=== PATIENT | female | born 1995 | race Caucasian/White ===

== ENCOUNTER → 2020-05-19 10:58 | Outpatient (CLI) | payer OTHER, MEDICAID, SELFPAY ==
[2020-05-19 12:13] LABS: GTT (PREG) 1 Hour PP 50gm Dose 100 mg/dL (76-139)
[2020-05-21 20:36] LABS: AFP, Serum 43.6 ng/mL (.); Calc Gestational Age Ultrasound (.); Estriol, Free 0.99 ng/mL (.); Inhibin A, Dimeric 119.25 pg/mL (.); Inhibin A, MoM 0.91 (.); Maternal Ethnicity Caucasian (.); Maternal Weight 208 lbs (.); Number of Fetuses No (.); OSBR Risk 1 IN 2523 (.); Results Report (.); Test Results *Screen Negative* (.); hCG, MoM 0.86 (.); hCG, Serum 27983 mIU/mL (.)
== END ==
PROVIDERS: Referring Provider Nurse Practitioner Obstetrics & Gynecology; Visit Provider Nurse Practitioner Obstetrics & Gynecology
DX: Z34.90 Encounter for supervision of normal pregnancy, unspecified, unspecified trimester (principal); Z13.1 Encounter for screening for diabetes mellitus; Z36.1 Encounter for antenatal screening for raised alphafetoprotein level; Z3A.16 16 weeks gestation of pregnancy
CPT/HCPCS: 36415; 82105; 82677; 82950; 83036; 84702; 86336

== ENCOUNTER → 2020-06-20 10:39 | Outpatient (CLI) | payer OTHER, MEDICAID, SELFPAY ==
--- NOTE | 2020-06-20 | DI.US.S_ITS ---
PROCEDURE: US OB >= 14 WEEKS FETUS INDICATIONS: ANATOMY SCAN OUTSIDE/PRIOR DATING DATA: Last menstrual period (LMP): 01/02/2020. LMP-based estimated date of delivery (SARAI): 10/08/2020 . First dating scan (date and location): 06/20/2020 . Estimated date of delivery (SARAI) from first dating scan: 10/24/2020 . TECHNIQUE: Real-time scanning was performed of the fetus, with image documentation and biometric measurements. Endovaginal scanning: No COMPARISON: None. FINDINGS: General: A single living intrauterine gestation is present. Presentation: Vertex. Placenta: Placental position is posterior , without previa. Amniotic fluid index: 13.4 cm, normal range is 5-24 cm. heart rate: 141 beats per minute. Maternal cervical canal: 3.0 cm long. Normal lower limit is 2.5 cm. biometrics: Biparietal diameter: 22 weeks 4 days Head circumference: 22 weeks 2 days Abdominal circumference: 21 weeks 5 days Femur length: 21 weeks 3 days Estimated gestational age from initial scan: not applicable. Composite gestational age from present scan: 22 weeks Estimated weight and percentile: 443 g Measurement variability for biometric dating: +/- 7 days from 14 weeks to 15 weeks 6 days gestation, +/- 10 days from 16 weeks to 21 weeks 6 days gestation, +/- 2 weeks from 22 weeks to 27 weeks 6 days gestation, +/- 3 weeks for 28 weeks gestation or later. weight reference: 4500 g or EFW >90/95% is considered macrosomia or large for gestational age. EFW <10% is small for gestational age. EFW 5% or less is considered intra-uterine growth restriction. Anatomic survey: Neuro: Ventricles are non-dilated at less than 10 mm. Cisterna magna is normal at 3-11 mm. Cerebellum is normal in size and morphology. Nuchal skin fold: Normal at less than 6 mm between 14-21 weeks gestational age. Face: Nose and lips, facial profile are normal. Spine: No evidence for spina bifida. Heart: 4-chambered heart is present, with normal ventricular outflow tracts. Left ventricular intracardiac focus. Diaphragm: Diaphragm is intact. Stomach: Left-sided stomach is present. Kidneys: No hydronephrosis. Normal is less than 5 mm in 2nd trimester, less than 7 mm in 3rd trimester. Cord: 3-vessel cord has orthotopic insertion. Bladder: Normal in size. Extremities: All 4 extremities identified. IMPRESSION: 1. 22 week 0 day single living IUP corresponding to ultrasound SARAI of 10/24/2020. 2. Echogenic intracardiac focus: 1.4-1.8 fold likelihood of Down syndrome. If isolated finding, consider aneuploidy screening with cell-free DNA. If aneuploidy screen is negative, no further evaluation needed. Anatomic survey otherwise is normal. Dictated by: Frank Arzate [facility] Interpreted: Grant Bills MD on 06/20/2020 at 12:59 Approved by: Grant Bills M.D. on 06/20/2020 at 14:07
== END ==
PROVIDERS: Referring Provider Nurse Practitioner Obstetrics & Gynecology; Visit Provider Nurse Practitioner Obstetrics & Gynecology
DX: Z36.89 Encounter for other specified antenatal screening (principal); Z3A.22 22 weeks gestation of pregnancy
CPT/HCPCS: 76811

== ENCOUNTER → 2020-07-18 07:01 | Outpatient (CLI) | payer OTHER, MEDICAID, SELFPAY ==
[2020-07-18 08:07] LABS: Hematocrit 32.8 % (36-46); Mean Corpuscular HGB Conc 33.5 % (30-36); Mean Corpuscular Hemoglobin 30.7 PG (26-34); Mean Corpuscular Volume 91.8 fL (80-100); Platelet Count 273 X10^3/uL (150-400); Red Blood Cell Count 3.57 X10^6/uL (4.0-5.2); Red Cell Distribution Width 13.9 % (11.6-14.8); White Blood Cell Count 14.5 X10^3/uL (4.5-11.0)
[2020-07-18 08:16] LABS: Glucose Fasting 77 mg/dL (70-100)
[2020-07-18 09:25] LABS: Glucose Tol Interpretation INTERPRETATION
[2020-07-18 09:45] LABS: Glucose 1 Hour 125 mg/dL (70-170)
[2020-07-18 10:36] LABS: Glucose 2 Hour 100 mg/dL (70-140)
== END ==
PROVIDERS: PCP Nurse Practitioner Obstetrics & Gynecology; Referring Provider Nurse Practitioner Obstetrics & Gynecology; Visit Provider Nurse Practitioner Obstetrics & Gynecology
DX: Z34.90 Encounter for supervision of normal pregnancy, unspecified, unspecified trimester (principal); Z13.1 Encounter for screening for diabetes mellitus; Z3A.26 26 weeks gestation of pregnancy
CPT/HCPCS: 36415; 82951; 82952; 85027

== ENCOUNTER → 2020-10-10 11:44 | Outpatient (ROUT) | payer OTHER, MEDICAID, SELFPAY | PROVIDERS: PCP Nurse Practitioner Obstetrics & Gynecology; Visit Provider Nurse Practitioner Obstetrics & Gynecology | DX: Z34.90 Encounter for supervision of normal pregnancy, unspecified, unspecified trimester (principal); Z36.85 Encounter for antenatal screening for Streptococcus B; Z3A.36 36 weeks gestation of pregnancy | CPT/HCPCS: 87081; 87147 ==

== ENCOUNTER 2020-11-07 09:31 | Inpatient (IN) | payer OTHER, MEDICAID, SELFPAY ==
--- NOTE | 2020-11-07 09:48 | PM.OBHP.1 ---
OB HPI Date/Time Date of admission: 11/07/20 Date Patient Seen: 11/07/20 Time Patient Seen: 09:48 History of Present Condition Chief complaint: NST : 1 Para: 0 Estimated Date of Delivery: 11/03/20 Estimated Gestational Age (weeks): 40.4 Narrative: Angelica Bolton is a 25 year old female @ [id number] by early US who presents for evaluation of labor. Has been experiencing contractions all morning that have slowly increased in frequency and intensity. +FM. No VB or LOF. Uncomplicated PN care w/ CNM. Desires low intervention . History of Present care: good care, initiated at week # (11), number of visits (9) and pounds weight gain (59) Dating criteria: based on 1st trimester US only Ultrasounds: normal mid trimester US Obstetrical complications: none Medical complications: none Preadmission Labs Blood type: O (+) positive -: Antibody screen: negative, GBS status: positive, HBsAG: negative and RPR/VDLR: negative -: Rubella: immune HCT: 32.8 HCAB: reactive Narrative: 2hr gtt: 77/125/100 Evaluation Evaluation Baseline heart rate: 125 Variability: Moderate (11-25) monitor accelerations: Present Monitor Decelerations: Absent Contraction Frequency (minutes): 3 Uterine Contraction Intensity: Moderate Category of Tracing: Reactive Status: Category l Cervical dilation (cm): 5 Cervical effacement (%): 75 station: -1 [facility] Medical History (Updated 11/07/20 @ 10:28 by Marci Heard CNM) Eating disorder Family History (Updated 11/07/20 @ 10:30 by Marci Heard CNM) Mother Hypothyroid Social History (Updated 11/07/20 @ 10:30 by Marci Heard CNM) marital status: household members: spouse lives independently: Yes caregiver/support person: No housing: house occupational status: employed Smoking Status: Never smoker Meds Home Medications and Allergies Home Medications Medication Instructions Recorded Confirmed Type omeprazole 20 mg capsule,delayed mg 11/07/20 History release Allergies Allergy/AdvReac Type Severity Reaction Status Date / Time No Known Drug Allergies Allergy Verified 11/07/20 09:53 Review of Systems Review of Systems ROS: Yes All systems reviewed with the patient and are negative except as otherwise documented Exam Vital Signs (past 8 hours): BP 126/66mmHg, HR 78bpm, T 97.8F Temporal, SpO2 97% on RA Presentation: vertex Objective Labs Result Diagrams: 11/07/20 11:10 Labs: SARS-CoV-2: negative Assessment and Plan Assessment and Plan Assessment and Plan narrative: A: Term nullipara Active labor GBS prophylaxis indicated Cat I FHR P: Admit, routine labor orders. May switch to IA. PCN for GBS prophylaxis. Labor support, PRN. Reassess in 4 hours or sooner, PRN.
[2020-11-07 11:21] LABS: Add Manual Diff / Slide Review NO; Basophils Absolute Auto 100 /uL (0-100); Basophils Percent Auto 0.5 % (0-2); Eosinophils Absolute Auto 200 /uL (0-450); Eosinophils Percent Auto 1.2 % (2-4); Hematocrit 30.2 % (36-46); Hemoglobin 10.5 g/dL (12.0-16.0); Lymphocytes Absolute Auto 1600 /uL (1100-4500); Lymphocytes Percent Auto 11.4 % (25-40); Mean Corpuscular Hemoglobin 30.8 PG (26-34); Mean Corpuscular Volume 88.1 fL (80-100); Monocytes Absolute Auto 1200 /uL (0-900); Monocytes Percent Auto 8.3 % (3-14); Neutrophils Absolute Auto 11300 /uL (1500-7000); Neutrophils Percent Auto 78.6 % (50-75); Platelet Count 243 X10^3/uL (150-400); Red Blood Cell Count 3.42 X10^6/uL (4.0-5.2); Red Cell Distribution Width 15.2 % (11.6-14.8); White Blood Cell Count 14.4 X10^3/uL (4.5-11.0)
[2020-11-07] MEDS: LACTATED RINGERS 1,000 ML 100 ML IV (11:23)
[2020-11-07] MEDS: PENICILLIN G POTASSIUM 5,000,000 UNIT in DEXTROSE 5% IN WATER 250 ML IV (11:24)
[2020-11-07 11:34] LABS: COVID19 - ADMIT (NP swab/PCR) Negative (Negative)
--- NOTE | 2020-11-07 14:10 | PM.OBPNLAB ---
Date/Time Date Patient Seen: 11/07/20 Time Patient Seen: 14:00 Pain Control Pain control: tolerating well Comments: Angelica is laboring in room, on hands and knees, with supportive partner and mother at side. Vocalizing through contractions. Coping well. BP: 124/72 mmHg, HR: 85 bpm, T: 36.1 C temporal Pelvic Exam Dilation (cm): 6 Effacement (%): 80 station: -1 Amniotic membrane status: Intact Contractions Contractions on admission: regular Monitor mode: Palpation Contraction frequency (min): 3 Contraction duration (min): 2 Contraction pattern: Regular Contraction intensity: Moderate Status status: Category l Heart Rate Baseline: 120 Monitor Accelerations: Present Monitor Decelerations: Absent Monitor Variability: Moderate Comments: Reassuring by intermittent auscultation. Continuous FHR tracing cat 1 from [id number] Assessment and Plan Assessment: active labor Plan: continuous present management
[2020-11-07 14:35] VITALS: BP 126/66
[2020-11-07] MEDS: PENICILLIN G POTASSIUM 3,000,000 UNIT/50 ML FROZ.PIGGY 100 UNIT IV ×2 (15:49→19:47)
--- NOTE | 2020-11-07 19:31 | P.PCN_ITS ---
Regional Block Pre-procedure Procedure: Continuous Lumbar Epidural for L&D Attending OB provider: Marci Heard PMH/ROS narrative: term labor, 7cm, no complications ASA Class: III (BMI 40) Labs: Hct 30.2 % (36-46) L 11/07/20 11:10 Plt Count 243 X10^3/uL (150-400) 11/07/20 11:10 Medications: Current Medications Generic Name Dose Route Start Last Admin Trade Name Freq PRN Reason Stop Dose Admin Calcium Carbonate 1,000 mg 11/07/20 09:47 Calcium Carbonate 500 Mg Tab PO Q2HR PRN Dyspepsia Carboprost Tromethamine 250 mcg 11/07/20 09:42 Carboprost 250 Mcg/Ml Ampul IM Q90M PRN Bleeding Diphenhydramine HCl 25 mg 11/07/20 18:48 Diphenhydramine 50 Mg/Ml Vial IV Q10M PRN Pruritis Lactated Ringer's 1,000 mls @ 100 mls/hr 11/07/20 09:45 11/07/20 11:23 Lactated Ringers IV 100 mls/hr CONT VARGHESE Administration Oxytocin/Lactated Ringer's 30 unit in 500 mls @ 200 mls/hr 11/07/20 09:42 Oxytocin Premix IV CONT PRN Bleeding Protocol Tranexamic Acid 1,000 mg/ 100 mls @ 200 mls/hr 11/07/20 09:42 Sodium Chloride IV NOW PRN Bleeding Penicillin G Potassium 3,000,000 unit in 50 mls @ 100 mls/hr 11/07/20 14:00 11/07/20 15:49 Penicillin G Potassium IV 100 mls/hr Q4H VARGHESE Administration FENT 2MCG/ML BUPIV 0.125% EPI 200 mcg in 100 mls @ 6 mls/hr 11/07/20 19:00 Fentanyl/Bupiv/Ns 2mcg/Ml - 0.125% EPIDURAL CONT VARGHESE Methylergonovine Maleate 0.2 mg 11/07/20 09:42 Methylergonovine 0.2 Mg Tablet PO Q6HR PRN Heavy Bleeding Methylergonovine Maleate 0.2 mg 11/07/20 09:42 Methylergonovine 0.2 Mg/Ml Vial IM NOW PRN Bleeding Misoprostol 800 mcg 11/07/20 09:42 Misoprostol 200 Mcg Tablet WA NOW PRN Bleeding Misoprostol 1,000 mcg 11/07/20 09:42 Misoprostol 200 Mcg Tablet WA NOW PRN Bleeding Misoprostol 400 mcg 11/07/20 09:42 Misoprostol 200 Mcg Tablet SL NOW PRN Bleeding Nalbuphine HCl 2.5 mg 11/07/20 18:48 Nalbuphine 20 Mg/Ml Ampul IV Q10M PRN Pruritis Ondansetron HCl 4 mg 11/07/20 09:47 Ondansetron 4 Mg/2 Ml Inj IV Q4HR PRN Nausea And Vomiting Oxytocin 10 unit 11/07/20 09:42 Oxytocin 10 Unit/Ml Vial IM NOW PRN Bleeding Allergies: Allergies Allergy/AdvReac Type Severity Reaction Status Date / Time No Known Drug Allergies Allergy Verified 11/07/20 09:53 Procedure Insertion date: 11/07/20 Insertion time: 19:00 Prep/Local: betadine x3 Interspace: L3-4 Patient position: sitting Needle: 18 gauge KTM Advance (CSE: 27g Pencan through Hustead, clear CSF, 1mL 0.25% bupiv) Loss of resistance with: saline RICH at (cm): 6 Catheter placed at SKIN (cm): 12 Catheter in SPACE (cm): 6 Insertion: No CSF, No Blood, No Paresthesia with insertion, No Paresthesia with injection and No Test dose reaction Initial Medications TEST DOSE time: 19:03 TEST DOSE: 1.5% lidocaine with epinephrine 1:200k (mL): 3 BOLUS DOSE time: 19:25 BOLUS DOSE (mL): 5 BOLUS DOSE med: 0.25% bupivacaine Infusion INFUSION: 0.125% bupivacaine and with fentanyl 2 mcg/mL Initial rate (mL/hr): 8 Subsequent interventions: 19:25 50mcg fentanyl with loading dose Post-procedure Anesthesia time START: 18:51 Anesthesia time END: 01:06 Post-procedure Anesthesia Assessment: Yes CV function: HR/BP stable, Yes Resp function: RR/sat/airway adequate, Yes Mental status appropriate and No Anesthesia complications
--- NOTE | 2020-11-07 19:38 | PM.OBPNLAB ---
Date/Time Date Patient Seen: 11/07/20 Time Patient Seen: 19:38 Pain Control Pain control: epidural Comments: Angelica labored well, coping well with contractions. Began feeling spontaneous urge to push at 1730 and began pushing with contractions. Was examined and found to still have cervix with buldgey bag of fluid. AROM at 1830 with attempt to decrease her early urge to push. Meconium stained fluid noted. Urge to push was not improved with rupture. Pt was counseled on options and decided to have an epidural for pain control. Epidural has been placed with good relief. BP: 120/58 mmHg, HR: 68 bpm, T: 36.6 c temporal Pelvic Exam Dilation (cm): 7 Effacement (%): 90 station: -1 Amniotic membrane status: Ruptured Contractions Monitor mode: External Contraction frequency (min): 3 Contraction duration (min): 1 Contraction pattern: Regular Contraction intensity: Moderate Status status: Category l Heart Rate Baseline: 115 Monitor Accelerations: Present Monitor Decelerations: Early Monitor Variability: Moderate Assessment and Plan Assessment: active labor Plan: continuous present management Comments: Encourage position change with peanut ball. Reassess in 2 hrs or sooner prn
--- NOTE | 2020-11-07 21:42 | PM.OBPNLAB ---
Date/Time Date Patient Seen: 11/07/20 Time Patient Seen: 21:43 Pain Control Comments: RN called for decrease in FHR baseline to 105. Angelica resting in bed with epidural, unaware of contractions. SVE unchanged. While counseling on recommendation for IUPC, prolonged deceleration noted on EFM, ortega of 55 bpm. FSE placed followed by IUPC. During IUCP placement cervix found to be 9/100/0. Pelvic Exam Dilation (cm): 9 Effacement (%): 100 station: 0 Amniotic membrane status: Ruptured Contractions Monitor mode: External Contraction frequency (min): 3 Contraction pattern: Regular Contraction intensity: Moderate Status status: Category ll Heart Rate Baseline: 105 Monitor Accelerations: Present Monitor Decelerations: Early and Variable Monitor Variability: Moderate Assessment and Plan Assessment: active labor Plan: continuous present management Comments: Encourage position changes. Will start pitocin if contractions inadequate by kimberley vigil.
[2020-11-08] MEDS: PENICILLIN G POTASSIUM 3,000,000 UNIT/50 ML FROZ.PIGGY 100 UNIT IV (00:22)
--- NOTE | 2020-11-08 01:24 | PM.OBPRVD ---
Events: Meconium Stained Fluid Labor & Delivery Delivery date: 11/08/20 Cervical ripening method: none Induction method: none Delivery monitor: internal FHT and internal uterine Route of delivery: L&D Laceration Description: None Estimated blood loss (mL): 150 Anesthesia Type: Epidural Narrative: Angelica reported increased rectal pressure. SVE 10/100/+1. Angelica began effectively pushing with coaching. bradycardia and variable decelerations noted on EFM. RT paged to standby for thin meconium and cat 2 FHR. Angelica delivered a baby boy at 0056 in [place] with a single, loose nuchal. Shoulders delivered easily. Thick terminal meconium noted. placed on maternal abdomen for drying and stimulation with poor tone and poor respiratory effort. Cord was clamped and cut and baby was brought to warmer for NRP. Apgars were 4 and 8. Pitocin was given via IV for active management of the third stage. Cord blood was collected. Placenta with previously undiagnosed velamentaous cord insertion was delivered spontaneously and intact with a 3 vessel cord. No lacerations were noted. Baby was placed skin to skin with mom after NRP. [place] Baby 1: gender: Male Presentation: vertex Position: Left Occiput Anterior Placenta delivery description: Spontaneous score (1 min): 4 score (5 min): 8 weight: 3965 kg Plan for aftercare: Routine care
[2020-11-08] MEDS: KETOROLAC 30 MG/ML VIAL IV (03:41)
[2020-11-08] MEDS: ACETAMINOPHEN 325 MG TABLET 650 MG PO (06:48)
[2020-11-08] MEDS: IBUPROFEN 600 MG TABLET PO (07:56)
[2020-11-08] MEDS: OXYCODONE IR 5 MG TABLET PO ×3 (08:46→21:15)
[2020-11-08] MEDS: DOCUSATE 100 MG CAPSULE PO (11:45)
--- NOTE | 2020-11-08 13:49 | PM.OBDS.1 ---
Discharge Providers Provider Date of admission: 11/07/20 09:31 Discharge Date: 11/08/20 Primary care physician: Marci Heard CNM Consults: 11/09/20 01:21 Consult to Supervisor [employer] Routine Comment: Discharge provider: Marci Herad CNM Summary Hospital Course Date Patient Seen: 11/08/20 Time Patient Seen: 11:45 Diagnoses: o80 Hospital Course: Angelica is voiding, ambulating and indpendently on PP day 1 s/p NSVB. Tolerating a general diet. Pain is well controlled w/ PO medication with oxycodone use for low back pain. Vaginal bleeding is moderate without clots. Has showered and is dressed in her own clohes, eager for discharge to home this evening/LUIGI. and mother are present and supportive. Peripartum Data Delivery Method: Natural Vaginal Laceration Description: None Episiotomy description: None complications: none [place] 1: Gender: Male Disposition of : home Discharge Diagnosis (1) Encounter for full-term uncomplicated delivery: Status: Acute Status at Discharge Cognitive/behavioral status at discharge: calm Functional status at discharge: independent ambulation Overall status at discharge: patient is progressing back to baseline Time Spent with Patient Time attestation: Total time spent providing and/or coordinating discharge services: Time spent: Less than 30 minutes Objective Labs Result Diagrams: 11/07/20 11:10 Exam Vital Signs (past 8 hours): BP 118/74bpm, HR 63bpm, RR 12/min, T 97F Temporal Other: Fundus form @ u, lochia light, no clots, perineum intact with mild edema Discharge Plan Discharge Plan Patient Disposition: Home Discharge orders & Medications Prescriptions: New oxycodone 5 mg Tablet 5 mg PO Q4HR PRN (Reason: Pain, Moderate (4-6)) 4 Days Qty: 10 RF: 0 ibuprofen 600 mg Tablet 600 mg PO Q6HR PRN (Reason: Pain, Mild (1-3)) 14 Days Qty: 60 RF: 0 docusate sodium 100 mg Capsule 100 mg PO DAILY 14 Days Qty: 14 RF: 0 Continued Vitamin 1 tab PO DAILY RF: 0 Discontinued omeprazole 20 mg capsule,delayed release(DR/EC) RF: 0 Follow up/Referrals: Marci Heard CNM [Primary Care Provider] - (Follow-up by Telehealth 11/20/2020 @ 1pm Follow-up in office 12/19/2020 @ 1pm ) Diet/Activity/Treatments Diet: Diet as Tolerated Activity: pelvic rest x 6 weeks Skin/Wound/Dressing Care Report to your healthcare provider any signs of infection, such as:: chills, fever, increased pain, unusual drainage and unusual redness Visit Report/Discharge Packet Instructions: Depression Discharge Data Primary Care Provider: Marci Heard
[2020-11-08 17:12] VITALS: BP 123/60; PULSE 66; RESP 10; TEMP 36.9
== END 2020-11-08 22:50 | disposition home or self-care (01) | DRG 560 ==
PROVIDERS: Admitting Provider Nurse Practitioner Obstetrics & Gynecology; PCP Nurse Practitioner Obstetrics & Gynecology; Referring Provider Nurse Practitioner Obstetrics & Gynecology; Visit Provider Nurse Practitioner Obstetrics & Gynecology
DX: O99.824 Streptococcus B carrier state complicating childbirth (principal); Z3A.40 40 weeks gestation of pregnancy; Z37.0 Single live birth; O77.0 Labor and delivery complicated by meconium in amniotic fluid; O69.81X0 Labor and delivery complicated by cord around neck, without compression, not applicable or unspecified; O76 Abnormality in fetal heart rate and rhythm complicating labor and delivery; Z20.822 Contact with and (suspected) exposure to COVID-19
CPT/HCPCS: 01967; 36415; 59050; 85025; 86850; 86900; 86901; 87635; 99406; C9803; G0379; J1885; J2540

== ENCOUNTER → 2021-12-25 11:02 | Outpatient (CLI) | payer OTHER, MEDICAID, SELFPAY | PROVIDERS: PCP Nurse Practitioner Obstetrics & Gynecology; Visit Provider Registered Nurse | DX: J02.9 Acute pharyngitis, unspecified (principal) | CPT/HCPCS: 87070; 87880 ==

== ENCOUNTER → 2022-02-15 07:30 | Outpatient (CLI) | payer OTHER, MEDICAID, SELFPAY ==
[2022-02-15 11:50] LABS: Influenza A - CEPHEID Flu A NEGATIVE (NEGATIVE); Influenza B - CEPHEID Flu B NEGATIVE (NEGATIVE); Respiratory Syncytial Virus Negative (Negative)
[2022-02-15 11:51] LABS: COVID-19 CEPHEID 4-PLEX PCR Negative (Negative)
== END ==
PROVIDERS: PCP Nurse Practitioner Obstetrics & Gynecology; Visit Provider Registered Nurse
DX: R05.1 Acute cough (principal); Z20.822 Contact with and (suspected) exposure to COVID-19
CPT/HCPCS: 0241U

== ENCOUNTER → 2023-11-29 07:49 | Outpatient (CLI) | payer OTHER, SELFPAY ==
[2023-11-29 10:19] LABS: Glucose Fasting 83 mg/dL (70-100)
[2023-11-29 10:22] LABS: Glucose 1 Hour 155 mg/dL (70-170)
[2023-11-29 10:25] LABS: Glucose Tol Interpretation INTERPRETATION
[2023-11-29 12:23] LABS: Glucose 2 Hour 132 mg/dL (70-140)
--- NOTE | 2023-12-02 07:21 | PM.OBHP.1 ---
OB HPI Date/Time Date of admission: 12/02/23 Date Patient Seen: 12/02/23 Time Patient Seen: 07:21 History of Present Condition Chief complaint: lab : 8 Para: 6 Narrative: Angelica Bolton is a 28 year old female [facility] Medical History Eating disorder Family History Mother Hypothyroid Social History (Updated 11/07/20 @ 10:30 by Marci Heard CNM) marital status: household members: spouse lives independently: Yes caregiver/support person: No housing: house occupational status: employed Smoking Status: Never smoker Meds Home Medications and Allergies Home Medications Medication Instructions Recorded Confirmed Type Vitamin 1 tab PO DAILY 11/07/20 04/07/22 History Allergies Allergy/AdvReac Type Severity Reaction Status Date / Time No Known Drug Allergies Allergy Verified 04/07/22 09:24 Assessment and Plan Time-Based Coding :: [TOTAL MINUTES] spent with patient and on the chart (including review of chart, obtaining history, exam, reviewing outside data, placing orders, documenting exam and treatment plan, and counseling patient) on [DATE].
== END ==
PROVIDERS: PCP Nurse Practitioner Obstetrics & Gynecology; Referring Provider Nurse Practitioner Obstetrics & Gynecology; Visit Provider Nurse Practitioner Obstetrics & Gynecology
DX: Z34.90 Encounter for supervision of normal pregnancy, unspecified, unspecified trimester (principal); Z13.1 Encounter for screening for diabetes mellitus; Z3A.16 16 weeks gestation of pregnancy
CPT/HCPCS: 36415; 82951; 82952

== ENCOUNTER → 2024-01-09 13:49 | Outpatient (CLI) | payer OTHER, SELFPAY ==
--- NOTE | 2024-01-09 13:51 | DI.US.S_ITS ---
PROCEDURE: US OB >= 14 WEEKS FETUS INDICATIONS: COMPLETE ANATOMY SCAN OUTSIDE/PRIOR DATING DATA: Last menstrual period (LMP): 08/20/2023. LMP-based estimated date of delivery (SARAI): 05/26/2024. First dating scan (date and location): Unknown. Estimated date of delivery (SARAI) from first dating scan: Unknown. The calculations are made using the clinical SARAI of 05/26/2024. TECHNIQUE: Real-time scanning was performed of the fetus, with image documentation and biometric measurements. COMPARISON: [facility], OB >= 14 WEEKS FETUS, 06/20/2020, 10:54. FINDINGS: General: A single living intrauterine gestation is present. Presentation: Transverse. Placenta: Placental position is posterior , without previa. Amniotic fluid index: 23.5 cm, normal range is 5-24 cm. Single deepest vertical pocket is 6.5 cm. heart rate: 125 beats per minute. Maternal cervical canal: 7.2 cm long. Normal lower limit is 2.5 cm. biometrics: Biparietal diameter: 5.0 cm 21 weeks 1 day Head circumference: 19.3 cm 21 weeks 4 days Abdominal circumference: 16.3 cm 21 weeks 3 days Femur length: 3.7 cm 21 weeks 6 days Clinically estimated gestational age: 20 weeks 2 days Composite gestational age from present scan: 21 weeks 4 days Estimated weight and percentile: 433 g 97th percentile Anatomic survey: Neuro: Ventricles are non-dilated at less than 10 mm. Cisterna magna is normal at 3-11 mm. Cerebellum is normal in size and morphology. Nuchal skin fold: Normal at less than 6 mm between 14-21 weeks gestational age. Face: Nose and lips, facial profile are normal. Spine: No evidence for spina bifida. Heart: 4-chambered heart is present, with normal ventricular outflow tracts. Diaphragm: Diaphragm is intact. Stomach: Left-sided stomach is present. Kidneys: No hydronephrosis. Normal is less than 5 mm in 2nd trimester, less than 7 mm in 3rd trimester. Cord: 3-vessel cord has orthotopic insertion. Bladder: Normal in size. Extremities: All 4 extremities identified. IMPRESSION: Single live intrauterine with gestational age today of 21 weeks 4 days. Anatomy is within normal limits. We strive to produce accurate, complete, and clear reports of imaging services. To assist us in improving patient care, this report was composed using standard report templates and voice recognition software. Therefore, it may contain abnormal punctuation, insertions and/or omissions. Occasional wrong-word or sound-alike substitutions may occur. Though we review the report and make efforts to correct it, we do recommend that the report be read carefully in proper context to recognize any text inaccuracies. Dictated by: Milagro Hackett M.D. on 01/09/2024 at 20:42 Approved by: Milagro Hackett M.D. on 01/09/2024 at 20:44
== END ==
PROVIDERS: Referring Provider Nurse Practitioner Obstetrics & Gynecology; Visit Provider Nurse Practitioner Obstetrics & Gynecology
DX: Z34.92 Encounter for supervision of normal pregnancy, unspecified, second trimester (principal); Z3A.21 21 weeks gestation of pregnancy
CPT/HCPCS: 76811

== ENCOUNTER → 2024-02-06 07:47 | Outpatient (CLI) | payer OTHER, SELFPAY ==
[2024-02-06 09:05] LABS: Add Manual Diff / Slide Review NO; Basophils Absolute Auto 100 /uL (0-100); Basophils Percent Auto 0.6 % (0-2); Eosinophils Absolute Auto 400 /uL (0-450); Eosinophils Percent Auto 3.2 % (2-4); Hematocrit 33.6 % (36-46); Hemoglobin 11.4 g/dL (12.0-16.0); Lymphocytes Absolute Auto 2800 /uL (1100-4500); Lymphocytes Percent Auto 21.3 % (25-40); Mean Corpuscular Hemoglobin 30.6 PG (26-34); Mean Corpuscular Volume 89.8 fL (80-100); Monocytes Absolute Auto 900 /uL (0-900); Monocytes Percent Auto 7.1 % (3-14); Neutrophils Absolute Auto 8800 /uL (1500-7000); Neutrophils Percent Auto 67.8 % (50-75); Platelet Count 257 X10^3/uL (150-400); Red Blood Cell Count 3.74 X10^6/uL (4.0-5.2)
[2024-02-06 09:21] LABS: Glucose Fasting 83 mg/dL (70-100)
[2024-02-06 10:58] LABS: Glucose Tol Interpretation INTERPRETATION
[2024-02-06 11:05] LABS: Glucose 1 Hour 137 mg/dL (70-170)
[2024-02-06 11:43] LABS: Glucose 2 Hour 132 mg/dL (70-140)
== END ==
PROVIDERS: PCP Registered Nurse; Referring Provider Nurse Practitioner Obstetrics & Gynecology; Visit Provider Nurse Practitioner Obstetrics & Gynecology
DX: Z34.90 Encounter for supervision of normal pregnancy, unspecified, unspecified trimester (principal); Z13.1 Encounter for screening for diabetes mellitus; Z3A.28 28 weeks gestation of pregnancy
CPT/HCPCS: 36415; 82951; 82952; 85025

== ENCOUNTER 2024-05-20 14:08 | Outpatient (CLI) | payer OTHER, SELFPAY ==
--- NOTE | 2024-05-20 14:44 | PM.OBTRLD ---
Visit Information Visit Information Date of evaluation: 05/20/24 Primary OB Provider: Marci Heard On-call OB Provider: Marci Heard Comments/Additional reasons for admission: 28YO @ 39wks 1 day by LMP concordant with 11wk US presents for evaluation of possible ROM. Has noticed damp underwear and scant leaking fluid this afternoon. Feeling mild, irregular contractions and normal movement. No vaginal bleeding. Uncomplicated care with CNMs. Planning an epidural. Vital Signs Vital Signs: Bp 118/75, HR90, T 36.4C Temporal PFSH Medical History Eating disorder Family History Mother Hypothyroid Social History marital status: household members: spouse lives independently: Yes caregiver/support person: No housing: house occupational status: employed Smoking Status: Never smoker Review of Systems Review of Systems ROS: Yes All systems reviewed with the patient and are negative except as otherwise documented Exam Vital Signs (past 8 hours): see above Resp Effort & Inspection: normal respiratory effort and able to speak in complete sentences Presentation: vertex Amniotic Fluid: no fluid Evaluation Evaluation Baseline heart rate: 125 Variability: Moderate (11-25) monitor accelerations: Present Monitor Decelerations: Absent Uterine Contraction Intensity: Mild Cervical dilation (cm): 2 Cervical effacement (%): 60 station: -3 Non-invasive Membranes Rupture Test: negative Diagnosis, Plan/Disposition Final Diagnosis (1) Suspected problem with amniotic cavity and membrane not found: Status: Acute Plan/Disposition Plan: Offered CE and membrane sweep after Amnisure resulted negative and she accepted. Recommend that she go for a walk and if things cigar packer and picker, then she should return. If things stay mild or resolve, go home and rest. Reviewed routine labor precautions. RTC as previously scheduled. OB Disposition: home
== END 2024-05-20 14:55 | disposition home or self-care (01) ==
LOC: OB 05-21 09:50
PROVIDERS: PCP Registered Nurse; Referring Provider Nurse Practitioner Obstetrics & Gynecology; Visit Provider Nurse Practitioner Obstetrics & Gynecology
DX: Z03.71 Encounter for suspected problem with amniotic cavity and membrane ruled out (principal)
CPT/HCPCS: 59025; 84112; G0378; G0379

== ENCOUNTER 2024-06-04 07:18 | Inpatient (IN) | payer OTHER, SELFPAY ==
--- NOTE | 2024-06-04 07:23 | P.HPOB_ITS ---
OB HPI Date/Time Date of admission: 06/04/24 Date Patient Seen: 06/04/24 Time Patient Seen: 07:23 History of Present Condition Chief complaint: Induction : 2 Para: 1 Estimated Date of Delivery: 05/26/24 Estimated Gestational Age (weeks): 41.2 Narrative: Angelica Bolton is a 28 year old female @ [id number] by LMP concordant with 11wks US presents for induction of labor. Reassuring testing on 06/01/2024. Seen in clinic yesterday with CE 2.5/75%/-3, Dahl balloon placed. Balloon came out around 2049 and she was able to get some sleep. +FM. No vaginal bleeding or leaking of fluid. Uncomplicated care with CNMs. Planning an epidural. , Dario, is present and supportive. Indications Indication for induction OB: post dates History of Present care: good care, initiated at week # (10.6), number of visits (11) and pounds weight gain (30) Dating criteria: LMP confirmed by 1st trimester US Ultrasounds: normal mid trimester US Obstetrical complications: none Preadmission Labs Blood type: O (+) positive -: Antibody screen: negative, GBS status: positive, HBsAG: negative, HIV: unknown (DECLINED) and RPR/VDLR: negative HCT: 33.6 HCAB: negative Narrative: 2hr GTT: early 83/155/132, 24wks 83/137/132 Prior (ies) History: 11/08/2020: NSVB @ [id number], 16hr labor, 2hr second stage, [id number] male, no tearing, epidural Hx # Term Pregnancies: 1 Hx # Pregnancies: 0 Number of Living Children: 1 Multiple births: 0 Spontaneous abortions: 0 Ectopic pregnancies: 0 Elective abortions: 0 Evaluation Evaluation Baseline heart rate: 150 Variability: Moderate (11-25) monitor accelerations: Present Monitor Decelerations: Prolonged (single) Contraction Frequency (minutes): 5 Uterine Contraction Intensity: Mild Status: Category ll (overall reassuring) Dilation (cm): 4.5 Effacement (%): 75 Dilation: 3-4 cm Effacement: 60-70% station: -3 Position of cervix: posterior Consistency: soft Kaminski score: 6 Comments: Prior to being admitted into [facility] (tracing on paper, not stored in EMR), patient had a hypotensive episode while lying in bed, BP 100/40, FHR baseline 130 prior to deceleration w/ maternal BP drop, resolved with improvement in maternal BP to baseline 150bpm. Poor continuity of FHR tracing during this episode d/t maternal position changes, though moderate variability when picking up. [facility] Medical History Eating disorder Family History Mother Hypothyroid Social History marital status: household members: spouse lives independently: Yes caregiver/support person: No housing: house occupational status: employed Smoking Status: Never smoker Meds Home Medications and Allergies Home Medications Medication Instructions Recorded Confirmed Type Vitamin 1 tab PO DAILY 11/07/20 02/27/24 History Allergies Allergy/AdvReac Type Severity Reaction Status Date / Time No Known Drug Allergies Allergy Verified 02/27/24 11:46 Review of Systems Review of Systems ROS: Yes All systems reviewed with the patient and are negative except as otherwise documented OB Exam Vital signs Blood Pressure: 126/70 Respiratory Rate: 15 Temperature: 97.2 F Resp Effort & Inspection: normal respiratory effort Auscultation: clear to auscultation bilaterally Cardio Rate: regular rate Rhythm: regular rhythm Heart Sounds: S1 normal and S2 normal Presentation: vertex Objective Labs 06/04/24 07:55 Assessment and Plan Assessment and Plan Assessment and Plan narrative: A: Late term primipara IOL for postdates GBS prophylaxis indicated hypotensive episode Cat II FHR- overall reassuring P: Admit, routine labor orders. 500mL IVFB. Pitocin, per protocol. 500mL LVFB now. Will consider AROM once adequately treated.Reassess in 4 hours or sooner, PRN. Time-Based Coding :: [TOTAL MINUTES] spent with patient and on the chart (including review of chart, obtaining history, exam, reviewing outside data, placing orders, documenting exam and treatment plan, and counseling patient) on [DATE].
[2024-06-04 08:03] VITALS: BP 126/70; RESP 15; TEMP 36.2
[2024-06-04 08:15] LABS: Add Manual Diff / Slide Review NO; Basophils Absolute Auto 100 /uL (0-100); Basophils Percent Auto 0.5 % (0-2); Eosinophils Absolute Auto 200 /uL (0-450); Eosinophils Percent Auto 1.9 % (2-4); Hematocrit 35.3 % (36-46); Hemoglobin 12.1 g/dL (12.0-16.0); Lymphocytes Absolute Auto 2600 /uL (1100-4500); Lymphocytes Percent Auto 21.9 % (25-40); Mean Corpuscular HGB Conc 34.2 % (30-36); Mean Corpuscular Hemoglobin 30.5 PG (26-34); Mean Corpuscular Volume 89.3 fL (80-100); Monocytes Absolute Auto 1000 /uL (0-900); Monocytes Percent Auto 8.9 % (3-14); Neutrophils Absolute Auto 7900 /uL (1500-7000); Neutrophils Percent Auto 66.8 % (50-75); Platelet Count 240 X10^3/uL (150-400); Red Blood Cell Count 3.96 X10^6/uL (4.0-5.2); White Blood Cell Count 11.8 X10^3/uL (4.5-11.0)
[2024-06-04] MEDS: LACTATED RINGERS 1,000 ML 100 ML IV ×2 (08:18→18:39)
[2024-06-04] MEDS: AMPICILLIN 2,000 MG in SODIUM CHLORIDE 0.9% 100 ML 200 MG IV (08:18)
[2024-06-04] MEDS: OXYTOCIN PREMIX 30 UNIT/500 ML PLAST..BAG IV (08:36)
[2024-06-04 08:52] VITALS: BP 126/70
[2024-06-04] MEDS: AMPICILLIN 1,000 MG in SODIUM CHLORIDE 0.9% 100 ML 200 MG IV ×2 (12:14→16:13)
--- NOTE | 2024-06-04 12:40 | PM.OBPNLAB ---
Date/Time Date Patient Seen: 06/04/24 Time Patient Seen: 12:30 Pain Control Pain control: tolerating well Comments: On hands and knees on CUB in bed. Feeling stronger cramping for the last 30-40 minutes, but nothing like last night with the Dahl balloon. Not feeling ready for AROM, wants to keep going with pitocin for now. and mother remain supportive at her side. VS: BP 118/70, HR 71bpm, T 36.3C Temporal Pelvic Exam Dilation (cm): 4.5 Effacement (%): 75 station: -3 Amniotic membrane status: Intact Comments: CE deferred Contractions Contractions on admission: irregular Monitor mode: External Pitocin rate (mU/min): 8 Contraction frequency (min): 3 Contraction duration (min): 1 Contraction pattern: Regular Contraction intensity: Mild Status status: Category ll (overall reassuring) Heart Rate Baseline: 125 Monitor Accelerations: Present Monitor Decelerations: Absent Monitor Variability: Moderate Assessment and Plan Assessment: induction ongoing Plan: continuous present management Comments: Continue pitocin titration to strong contraction pattern. Reassessin 4 hours or sooner, PRN.
--- NOTE | 2024-06-04 18:33 | PM.AN.REGBLK ---
Regional Block Pre-procedure Procedure: Continuous Lumbar Epidural for L&D Attending OB provider: Marci Heard PMH/ROS narrative: IOL for PD, 41 2. ROS negative other than GERD, anemia with this PSH/Anesthesia history narrative: Epidural with first baby worked well for her. Exam narrative: Mall II, good airway ASA Class: II Labs: Hct 35.3 % (36-46) L 06/04/24 07:55 Plt Count 240 X10^3/uL (150-400) 06/04/24 07:55 Medications: Current Medications Generic Name Dose Route Start Last Admin Trade Name Freq PRN Reason Stop Dose Admin Carboprost Tromethamine 250 mcg 06/04/24 07:20 Carboprost 250 Mcg/Ml Ampul IM Q90M PRN Bleeding Fentanyl 100 mcg 06/04/24 07:20 Fentanyl 100 Mcg/2 Ml Inj IV Q1H PRN Pain, Severe (7-10) Oxytocin/Lactated Ringer's 30 unit in 500 mls @ 200 mls/hr 06/04/24 07:20 Oxytocin Premix IV CONT PRN Bleeding Protocol Tranexamic Acid 1,000 mg/ 100 mls @ 600 mls/hr 06/04/24 07:20 Sodium Chloride IV NOW PRN Bleeding Ampicillin Sodium 1,000 mg/ 100 mls @ 200 mls/hr 06/04/24 12:00 06/04/24 16:13 Sodium Chloride IV 200 mls/hr Q4H VARGHESE Administration Oxytocin/Lactated Ringer's 30 unit in 500 mls @ 2 mls/hr 06/04/24 07:30 06/04/24 08:36 Oxytocin Premix IV 2 milliunit/min TITRATE VARGHESE 2 mls/hr Administration Protocol 2 MILLIUNIT/MIN Lidocaine HCl 20 ml 06/04/24 07:20 Lidocaine 1% 20 Ml INJ INTRA-OP PRN Post Delivery Methylergonovine Maleate 0.2 mg 06/04/24 07:20 Methylergonovine 0.2 Mg Tablet PO Q6HR PRN Heavy Bleeding Methylergonovine Maleate 0.2 mg 06/04/24 07:20 Methylergonovine 0.2 Mg/Ml Vial IM NOW PRN Bleeding Misoprostol 800 mcg 06/04/24 07:20 Misoprostol 200 Mcg Tablet AZ NOW PRN Bleeding Misoprostol 400 mcg 06/04/24 07:20 Misoprostol 200 Mcg Tablet SL NOW PRN Bleeding Naloxone HCl 0.2 mg 06/04/24 07:20 Naloxone 0.4 Mg/Ml Vial IV Q2MIN PRN Opiate Reversal Oxytocin 10 unit 06/04/24 07:20 Oxytocin 10 Unit/Ml Vial IM NOW PRN Bleeding Allergies: Allergies Allergy/AdvReac Type Severity Reaction Status Date / Time No Known Drug Allergies Allergy Verified 02/27/24 11:46 Procedure Insertion date: 06/04/24 Insertion time: 18:09 Prep/Local: 1% lidocaine (Chloraprep skin prep, dry x 3 min) Interspace: L4-5 Patient position: sitting Needle: 17 gauge Tuohy Loss of resistance with: saline RICH at (cm): 7 Catheter placed at SKIN (cm): 14 Catheter in SPACE (cm): 7 Sensory level: T12 Insertion: No CSF, No Blood, No Paresthesia with insertion, No Paresthesia with injection and No Test dose reaction Initial Medications TEST DOSE time: 18:15 BOLUS DOSE time: 18:25 BOLUS DOSE (mL): 7 BOLUS DOSE med: other (pump solution) Infusion INFUSION: 0.125% bupivacaine and with fentanyl 2 mcg/mL Initial rate (mL/hr): 10 Post-procedure Anesthesia date START: 06/04/24 Anesthesia time START: 18:09
--- NOTE | 2024-06-04 19:07 | PM.OBPNLAB ---
Date/Time Date Patient Seen: 06/04/24 Time Patient Seen: 19:07 Pain Control Pain control: epidural Comments: Labored well in the shower and in multiple positions. She requested and received an epidural. and mother providing continuous labor support w/ CNM. VS: BP 121/69, HR 83bpm, T 36.3C Temporal. Pelvic Exam Dilation (cm): 10 Effacement (%): 100 station: 0 Amniotic membrane status: Intact Comments: CE immediately prior to epidural placement was 6-7cm/100/-1. Contractions Monitor mode: External Pitocin rate (mU/min): 12 (Max dose 16mu/min)) Contraction frequency (min): 2 Contraction duration (min): 1 Contraction pattern: Regular Contraction intensity: Strong/Firm Status status: Category l Heart Rate Baseline: 120 Monitor Accelerations: Present Monitor Decelerations: Absent Monitor Variability: Moderate Assessment and Plan Assessment: active labor Plan: continuous present management Comments: Recommend 30 minutes of rest and then anticipate beginning second stage. Anticipate NSVB.
--- NOTE | 2024-06-04 19:54 | PM.OBPRVD ---
Events: Labor Induction (routine for post dates @ 41w2d) Labor & Delivery Delivery date: 06/04/24 Delivery Time: 19:36 Intrapartal Events: None Cervical ripening method: per Dahl bulb protocol Induction method: per pitocin protocol Delivery monitor: external FHT and external uterine Route of delivery: Episiotomy description: None L&D Laceration Description: None Quantitative Blood Loss: 125 Anesthesia Type: Epidural Narrative: Rapid second stage with coached pushing led to NSVB of a vigorous baby girl in FLASH position. SROM for clear fluid occurred with . There was no nuchal cord and the shoulders delivered easily. was placed on maternal abdomen for drying and skin to skin. Remaining 30 units of pitocin in 500mL LR was increased to 250mL/hr for AMTSL. After cessation of pulsation, the cord was double clamped and cut. Cord blood sample was collected and sent. Gentle cord traction and a single maternal push led to spontaneous, Schultze delivery of an apparently intact placenta, membranes and 3VC. Fundus immediately firm and bleeding scant. Vagina and perineum inspected and intact. QBL 125mL. Both mother and baby stable and skin to skin as I left the room. Baby 1: Infant gender: Female Presentation: vertex Position: Left Occiput Anterior Placenta delivery description: Spontaneous and Normal Configuration Cord Vessel Description: 3 Vessels score (1 min): 9 score (5 min): 9 weight: 4.124 kg Plan for aftercare: Routine care
[2024-06-04] MEDS: KETOROLAC 30 MG/ML VIAL IV (21:24)
[2024-06-04] MEDS: ACETAMINOPHEN 325 MG TABLET 650 MG PO (21:25)
[2024-06-05] MEDS: IBUPROFEN 600 MG TABLET PO ×3 (04:37→18:01)
[2024-06-05] MEDS: DERMOPLAST SPRAY 20% 60 ML 1 SPRAY TOP (08:06)
[2024-06-05] MEDS: LANOLIN OINT 7 GM 1 APPLIC TOP (08:06)
[2024-06-05] MEDS: WITCH HAZEL/GLYCERIN PADS 1 EACH TOP (08:07)
[2024-06-05] MEDS: ACETAMINOPHEN 325 MG TABLET 650 MG PO ×2 (08:08→15:14)
--- NOTE | 2024-06-05 16:54 | P.DS_ITS ---
Discharge Providers Provider Date of admission: 06/04/24 07:18 Discharge Date: 06/05/24 Primary care physician: DEON Victor Consults: 06/04/24 07:20 Consult to Anesthesiology Urgent Comment: Consulting Provider: Priti Gordon Reason for consultation: Epidural Has provider been notified: No 06/05/24 19:52 Consult to Sdv Pilot/Navigator/Dds Operator Routine Comment: Discharge provider: Tanesha Hauser CNM, ARNP Summary Hospital Course Date Patient Seen: 06/05/24 Time Patient Seen: 16:54 Diagnoses: O80 Hospital Course: IOL for postdates. Epidural for pain relief. NSVB with intact perineum. QBL 125 mL. Normal course. . Peripartum Data Delivery Method: Natural Vaginal Laceration Description: None Episiotomy description: None Rover 1: Gender: Female Disposition of : home Discharge Diagnosis (1) (normal spontaneous vaginal delivery): Status: Acute (2) Supervision of other normal : Status: Acute (3) Delivery normal: Status: Acute Status at Discharge Cognitive/behavioral status at discharge: oriented and calm Functional status at discharge: independent ambulation Overall status at discharge: patient is progressing back to baseline Time Spent with Patient Time attestation: Total time spent providing and/or coordinating discharge services: Time spent: Greater than 30 minutes Specific discharge activities: discharge teaching Objective Labs 06/04/24 07:55 Exam Vital Signs (past 8 hours): 110/77, 58 bpm, 18/min, 98.2 F, 100% Other: Fundus firm at U, midline. Lochia moderate Perineum intact with minimal edema Discharge Plan Discharge Plan Patient Disposition: Home Discharge orders & Medications Prescriptions: Continued Vitamin 1 tab PO DAILY Follow up/Referrals: Marci Heard CNM [[employer]] - (Please follow up lindsay/ Marci for your appointment as stated in your email.) Diet/Activity/Treatments Diet: Diet as Tolerated and Regular Diet comment: increase fiber and fluid Activity: Low johnston x 2 weeks Cold/Heat Therapy: as needed Skin/Wound/Dressing Care Skin care: usual care Report to your healthcare provider any signs of infection, such as:: chills, fever, unusual drainage and unusual redness Visit Report/Discharge Packet Instructions: DI for Hemorrhage, Fitness, DI for Depression Stand Alone Forms: Discharge: Care, Patient Portal/API, Stroke Signs & Symptoms Discharge Data Primary Care Provider: Peggy Cullen
== END 2024-06-05 18:55 | disposition home or self-care (01) | DRG 807 ==
PROVIDERS: Admitting Provider Nurse Practitioner Obstetrics & Gynecology; PCP Registered Nurse; Referring Provider Nurse Practitioner Obstetrics & Gynecology; Visit Provider Nurse Practitioner Obstetrics & Gynecology
DX: O48.0 Post-term pregnancy (principal); Z37.0 Single live birth; Z3A.41 41 weeks gestation of pregnancy; O99.824 Streptococcus B carrier state complicating childbirth
CPT/HCPCS: 36415; 59050; 85025; 86850; 86900; 86901; G0379; J0290; J1885; J2590